=== PATIENT | female | born 1980 | race Caucasian/White ===

== ENCOUNTER 2019-07-11 17:38 | Emergency (ER) | payer OTHER ==
--- NOTE | 2019-07-11 18:03 | ER Document Report ---
ED General - General Stated Complaint: CHEST PAIN Time Seen by Provider: 07/11/19 17:42 Primary Care Provider: ARPIT LAYTON MD [ACTIVE STAFF] - Follow up as needed Notes: 38-year-old female with a history of hypothyroidism presents to the ER complaining of chest discomfort palpitations difficulty breathing. The patient just finished arguing with her daughter and went into her room and developed sudden onset of chest discomfort palpitations and difficulty breathing. She activated EMS and came here. Patient states she is starting to feel better she denies being anxious but stated she was pretty upset. Denies fever chills cough or sore throat. Patient stated she just recently traveled from [place] but denies any calf pain or leg swelling. Denies nausea vomiting denies fever chills cough or sore throat denies runny nose or congestion denies any coronavirus exposures. TRAVEL OUTSIDE OF THE [place] IN LAST 30 DAYS: No - Related Data Allergies/Adverse Reactions: cefuroxime axetil [From Ceftin] Allergy (Severe, Verified 11/22/13 11:59) Hives clarithromycin [From Biaxin] Allergy (Severe, Verified 11/22/13 11:59) Diarrhea codeine [Codeine] Allergy (Severe, Verified 11/22/13 11:59) Projectile vomiting hydromorphone HCl [From Dilaudid] Allergy (Severe, Verified 11/22/13 11:59) Stop breathing Past Medical History - Social History Smoking Status: Unknown if Ever Smoked Family History: Reviewed & Not Pertinent - Past Medical History Cardiac Medical History: Denies: Hx Coronary Artery Disease, Hx Heart Attack, Hx Hypertension Pulmonary Medical History: Reports: Hx Asthma, Hx Pneumonia - 2008 Denies: Hx Bronchitis, Hx COPD Neurological Medical History: Denies: Hx Cerebrovascular Accident, Hx Seizures Musculoskeletal Medical History: Denies Hx Arthritis - Immunizations Hx Diphtheria, Pertussis, Tetanus Vaccination: Yes - 2007 Review of Systems - Review of Systems Constitutional: denies: Chills, Fever EENT: denies: Nose congestion, Nose discharge, Sinus pressure, Throat pain, Difficulty swallowing, Throat swelling Cardiovascular: Chest pain, Palpitations, Heart racing, Dyspnea. denies: Orthopnea Respiratory: Short of breath. denies: Cough, Hurts to breathe, Hemoptysis Neurological/Psychological: Anxiety -: Yes All other systems reviewed and negative Physical Exam - Vital signs Vitals: Pulse Ox 96 07/11/19 17:39 - Notes Notes: GENERAL_APPEARANCE: well_nourished, alert, cooperative, no_acute_distress, no_obvious_discomfort. VITALS: reviewed, see vital signs table. HEAD: no_swelling\tenderness on the head. EYES: PERRL, EOMI, conjunctiva_clear. NOSE: no_nasal_discharge. MOUTH: (-)decreased moisture. THROAT: no_tonsilar_inflammation, no_airway_obstruction. no_lymphadenopathy NECK: supple, no_neck_tenderness, (-)thyromegaly. BACK: no_back_tenderness. CHEST_WALL: no_chest_tenderness. LUNGS: no_wheezing, no_rales, no_rhonchi, (-)accessory muscle use, good air exc hange bilateral. HEART: normal_rate, normal_rhythm, normal_S1, normal_S2, (-)S3, (-)S4, no_murmur, no_rub. ABDOMEN: normal_BS, soft, no_abd_tenderness, (-)guarding, (-)rebound, no_organomegaly, no_abd_masses. EXTREMITIES: good pulses in all_extremities, no_swelling\tenderness in the extremities, no_edema. SKIN: warm, dry, good_color, no_rash. MENTAL_STATUS: speech_clear, oriented_X_3, anxious_affect, responds_appropriately to questions. Course - Re-evaluation Re-evalutation: 07/11/19 18:02 38-year-old female presents to the ER via EMS for chest discomfort palpitations difficulty breathing. She just finished arguing with her daughter. Patient is now starting to feel better. The patient did just travel from [place] via car but got out and walked a lot she denies any calf pain or leg swelling. Never had history of DVT or PE in the past. She has no resting tachycardia tachypnea or oxygen requirements. 07/11/19 22:10 3-hour troponin is unchanged. Patient is feeling better. D-dimer is negative PERC rule negative. Suspicion for PE very low heart score is 0. Serial troponins negative. EKG no acute abnormalities. This happened after the patient got into a altercation with her daughter is likely stress or anxiety related. Spoke with the patient at length she is comfortable with this however I did explain the limitations of her testing and how important follow-up is and if she does have repeat discomfort to return to the ER versus going to her family doctor. She may need further cardiovascular study if this becomes recurrent. - Vital Signs Vital signs: Temp Pulse Resp BP Pulse Ox 98.5 F 24 H 104/61 99 07/11/19 18:00 07/11/19 19:01 07/11/19 19:01 07/11/19 19:01 - Laboratory Result Diagrams: 07/11/19 18:18 07/11/19 18:18 Laboratory results interpreted by me: 07/11/19 07/11/19 18:18 18:18 MCHC 36.1 H Sodium 136.1 L Alkaline Phosphatase 22 L - Diagnostic Test Radiology reviewed: Reports reviewed Radiology results interpreted by me: 07/11/19 22:10 Chest X-Ray 07/11/19 17:40 IMPRESSION: NO ACUTE RADIOGRAPHIC FINDING IN THE CHEST. - EKG Interpretation by Pa EKG shows normal: Sinus rhythm Rate: Normal Rhythm: NSR Discharge - Discharge Clinical Impression: Stress reaction, Chest discomfort Condition: Good Disposition: HOME, SELF-CARE Instructions: Chest Pain of Unclear Cause ([facility]) Additional Instructions: Follow-up with your doctor. If you have any repeat episodes return to the ER. Referrals: ARPIT LAYTON MD [ACTIVE STAFF] - Follow up as needed
--- NOTE | 2019-07-11 18:20 | EKG REPORT ---
SEVERITY:- NORMAL ECG - SINUS RHYTHM : Confirmed by: Benito Encinas MD 11-Jul-2019 18:20:02
[2019-07-11 18:30] LABS: ABSOLUTE BASOPHILS # (AUTO) 0.1 10^3/uL (0.0-0.2); ABSOLUTE EOSINOPHILS # (AUTO) 0.1 10^3/uL (0.0-0.6); ABSOLUTE LYMPHOCYTES (AUTO) 2.3 10^3/uL (0.5-4.7); ABSOLUTE MONOCYTES (AUTO) 0.7 10^3/uL (0.1-1.4); BASOPHILS % (AUTO) 0.8 % (0-2); EOSINOPHILS % (AUTO) 1.5 % (0-6); HEMATOCRIT 37.8 % (36.0-47.0); HEMOGLOBIN 13.6 g/dL (12.0-15.5); MEAN CORPUSCULAR HEMOGLOBIN 31.3 pg (27.0-33.4); MEAN CORPUSCULAR HGB CONC 36.1 g/dL (32.0-36.0); MEAN CORPUSCULAR VOLUME 87 fl (80-97); MONOCYTES % (AUTO) 7.3 % (3-13); PLATELET COUNT 242 10^3/uL (150-450); RED BLOOD COUNT 4.36 10^6/uL (3.72-5.28); RED CELL DISTRIBUTION WIDTH 13.2 % (11.5-14.0); SEGMENTED NEUTROPHILS % (AUTO) 65.4 % (42-78); TOTAL CELLS COUNTED % (AUTO) 100 %; WHITE BLOOD COUNT 9.1 10^3/uL (4.0-10.5)
--- NOTE | 2019-07-11 18:44 | RADIOLOGY REPORT (SQ) ---
EXAM DESCRIPTION: CHEST SINGLE VIEW IMAGES COMPLETED DATE/TIME: 07/11/2019 4:57 pm REASON FOR STUDY: bed 2 chest pain COMPARISON: None. EXAM PARAMETERS: NUMBER OF VIEWS: One view. TECHNIQUE: Single frontal radiographic view of the chest acquired. RADIATION DOSE: NA LIMITATIONS: None. FINDINGS: LUNGS AND PLEURA: No opacities, masses or pneumothorax. No pleural effusion. MEDIASTINUM AND HILAR STRUCTURES: No masses. Contour normal. HEART AND VASCULAR STRUCTURES: Heart normal in size. Normal vasculature. BONES: No acute findings. HARDWARE: None in the chest. OTHER: No other significant finding. IMPRESSION: NO ACUTE RADIOGRAPHIC FINDING IN THE CHEST. TECHNICAL DOCUMENTATION: JOB ID: [id number] 2010 [employer]- All Rights Reserved Reading location - IP/workstation name: [email or web address]
[2019-07-11 18:48] LABS: ALBUMIN 3.8 g/dL (3.5-5.0); ALKALINE PHOSPHATASE 22 U/L (38-126); ANION GAP 5 (5-19); ASPARTATE AMINO TRANSFERASE 21 U/L (14-36); BILIRUBIN,TOTAL 0.4 mg/dL (0.2-1.3); BLOOD UREA NITROGEN 15 mg/dL (7-20); CARBON DIOXIDE 25 mmol/L (22-30); CHLORIDE 106 mmol/L (98-107); CREATINE KINASE 83 U/L (30-135); GLUCOSE 101 mg/dL (75-110); POTASSIUM 3.9 mmol/L (3.6-5.0); TOTAL PROTEIN 6.5 g/dL (6.3-8.2)
[2019-07-11 19:14] VITALS: BP 104/61
[2019-07-11] MEDS ORDERED: IBUPROFEN 800 MG TABLET PO ONE (19:38)
[2019-07-11 19:56] LABS: CREATINE KINASE MB 0.38 ng/mL (<4.55); TROPONIN I < 0.012 ng/mL
== END 2019-07-11 22:21 | disposition home or self-care (01) ==
LOC: ER 17:38
DX: F43.9 Reaction to severe stress, unspecified (principal); R07.9 Chest pain, unspecified; R00.2 Palpitations; F41.9 Anxiety disorder, unspecified; R06.02 Shortness of breath; Z88.8 Allergy status to other drugs, medicaments and biological substances; J45.909 Unspecified asthma, uncomplicated
CPT/HCPCS: 36415; 71045; 80053; 82550; 82553; 84484; 85025; 85379; 93005; 93010; 99285